=== PATIENT | female | born 1970 | race Caucasian/White ===

== ENCOUNTER 2018-01-25 15:41 | Emergency (ER) | END 2018-01-25 16:31 | disposition home or self-care (01) ==

== ENCOUNTER 2018-06-29 16:22 | Emergency (ER) | payer MEDICAID ==
[~2018-06-29] VITALS: Ht 144.8 cm; Wt 57.7 kg
[~2018-06-29 16:22] MED LIST: BENAZEPRIL HCL 20 MG PO; HYDR25TA6 PO; IBUP-1561 PO; LORA-441 PO
[2018-06-29 16:42] VITALS: Ht 144.8 cm; Wt 57.7 kg
--- NOTE | 2018-06-29 19:26 | ERD ---
ER Documentation Chief Complaint Chief Complaint x 5 days of L sided CANTRELL and CP HPI 48-year-old female presents for 5 days of left-sided intermittent headache and chest pain. Patient states that she feels a tension-like headache over the left side of her neck, it is associated with bilateral tingling of her hands. She has a history of hypertension, but otherwise no has no history of diabetes. Her symptoms are nonexertional, her headache was gradual in onset, she has not had a fever, no confusion, no weakness, no speech changes. She denies fever. She has no family history of major coronary disease. She denies shortness of breath, no leg swelling or hemoptysis. ROS All systems reviewed and are negative except as per history of present illness. Medications Home Meds Active Scripts Ibuprofen* (Motrin*) 400 Mg Tab, 400 MG PO Q8, #15 TAB Prov:LYDIA SAGE MD 01/25/18 Lorazepam* (Ativan*) 0.5 Mg Tablet, 0.5 MG PO QHS PRN for ANXIETY, #10 TAB Prov:LYDIA SAGE MD 01/25/18 Reported Medications [Benazepril Hcl 20 Mg] No Conflict Check, 10 MG PO DAILY 03/25/13 Hydrochlorothiazide* (Hydrochlorothiazide*) 25 Mg Tab, 25 MG PO DAILY 03/25/13 Allergies Allergies: Coded Allergies: No Known Allergy (Unverified , 03/25/13) PMhx/Soc History of Surgery: Yes ([facility] 2009) Anesthesia Reaction: No Hx Neurological Disorder: No Hx Respiratory Disorders: No Hx Cardiac Disorders: Yes (HTN) Hx Psychiatric Problems: No Hx Miscellaneous Medical Probl: No Hx Alcohol Use: No Hx Substance Use: No Hx Tobacco Use: No Smoking Status: Never smoker Physical Exam Vitals Vital Signs Date Temp Pulse Resp B/P (MAP) Pulse Ox O2 O2 Flow FiO2 Time Delivery Rate 06/29/18 98.0 75 17 149/85 100 Room Air 20:38 (106) 06/29/18 98.0 64 17 171/90 100 Room Air 18:36 (117) 06/29/18 Nasal 2 18:05 Cannula 06/29/18 98.6 66 20 200/95 100 16:42 (130) Physical Exam Const: No acute distress Head: Atraumatic Eyes: Normal Conjunctiva ENT: Normal External Ears, Nose and Mouth. Neck: Full range of motion. No meningismus. Resp: Clear to auscultation bilaterally Cardio: Regular rate and rhythm, no murmurs, no JVD Abd: Soft, non tender, non distended. Normal bowel sounds Skin: No petechiae or rashes Back: No midline or flank tenderness Ext: No cyanosis, or edema Neur: Neuro: M/S: Alert and oriented Face: EOMI, face and pharynx with normal sensation and function Motor: Normal strength throughout Sensation: Normal sensation throughout Speech: Normal Cerebel: Normal coordination Normal gait Normal finger to nose DTR: 2+ and symmetric upper/lower extremities Psych: Normal Mood and Affect Result Diagram: 06/29/18 1755 06/29/18 1755 Results 24 hrs Laboratory Tests Test 06/29/18 17:54 06/29/18 17:55 Prothrombin Time 11.2 Sec Prothrombin Time Ratio 0.9 INR International Normalized Ratio 0.80 White Blood Count 8.3 10^3/ul Red Blood Count 4.46 10^6/ul Hemoglobin 12.3 g/dl Hematocrit 36.7 % Mean Corpuscular Volume 82.3 fl Mean Corpuscular Hemoglobin 27.6 pg Mean Corpuscular Hemoglobin Concent 33.5 g/dl Red Cell Distribution Width 12.9 % Platelet Count 394 10^3/UL Mean Platelet Volume 9.0 fl Immature Granulocytes % 0.400 % Neutrophils % 60.2 % Lymphocytes % 29.7 % Monocytes % 7.4 % Eosinophils % 1.6 % Basophils % 0.7 % Nucleated Red Blood Cells % 0.0 /100WBC Immature Granulocytes # 0.030 10^3/ul Neutrophils # 5.0 10^3/ul Lymphocytes # 2.5 10^3/ul Monocytes # 0.6 10^3/ul Eosinophils # 0.1 10^3/ul Basophils # 0.1 10^3/ul Nucleated Red Blood Cells # 0.0 10^3/ul Sodium Level 140 mmol/L Potassium Level 3.9 mmol/L Chloride Level 104 mmol/L Carbon Dioxide Level 26 mmol/L Anion Gap 10 Blood Urea Nitrogen 19 mg/dl Creatinine 0.79 mg/dl Est Glomerular Filtrat Rate mL/min > 60 mL/min Glucose Level 97 mg/dl Calcium Level 9.5 mg/dl Total Bilirubin 0.1 mg/dl Direct Bilirubin 0.00 mg/dl Indirect Bilirubin 0.1 mg/dl Aspartate Amino Transf (AST/SGOT) 40 IU/L Alanine Aminotransferase (ALT/SGPT) 51 IU/L Alkaline Phosphatase 91 IU/L Troponin I < 0.012 ng/ml Total Protein 7.8 g/dl Albumin 4.6 g/dl Globulin 3.20 g/dl Albumin/Globulin Ratio 1.43 Procedures/MDM This is a 48-year-old female presents for relation of chest pain, associated with a headache. Overall impression at the patient most likely a tension-like headache, without any symptoms of infection, she has no meningeal signs, she had no neurologic deficits, and her headache was gradual onset in nature. In regards to her chest pain is very atypical for acute coronary syndrome, her EKG showed no evidence of ischemia, and her troponin was negative. Her heart score places her at low risk, and I discussed, outpatient follow-up, the patient feels comfortable following up with her primary care doctor, for further evaluation and possible stress test. Her chest x-ray was unremarkable, at discharge the patient was in no acute distress. EKG: Rate/Rhythm: Normal Sinus Rhythm QRS, ST, T-waves: No changes consistent w/ acute ischemia Impression: No evidence of ischemia or arrhythmia Departure Diagnosis: Primary Impression: Chest pain Chest pain type: unspecified Qualified Codes: R07.9 - Chest pain, unspecified Condition: Stable RAYSA RIGGINS MD Jun 29, 2018 19:26
[2018-06-29 20:38] VITALS: BP 149/85; PULSE 75; RESP 17
== END 2018-06-29 20:39 | disposition home or self-care (01) ==
LOC: E/R 16:22
DX: R07.9 Chest pain, unspecified (principal); I10 Essential (primary) hypertension
CPT/HCPCS: 36415; 71045; 80053; 84484; 85025; 85610; 93005; Z7502